=== PATIENT | male | born 1985 | race Caucasian/White ===

== ENCOUNTER 2021-03-11 01:24 | Day surgery (SDC) | payer BC, SELFPAY ==
[2021-03-09 13:36] VITALS: BMI 37.5
[2021-03-11] VITALS (11 sets, daily range): BP systolic 151–169; BP diastolic 87–110; PULSE 72–99; RESP 10–20; TEMP 36.1–37.4; O2SAT 92–99
--- NOTE | ~2021-03-11 | XR_ITS ---
EXAMINATION: XR retrograde pyelo w/stent LT EXAM DATE: 03/11/2021 13:16 INDICATION: Left-sided stone extraction, stent placement. TECHNIQUE: Fluoroscopy used during XR retrograde pyelo w/stent LT performed by Dr. Fidel toledo MD, urologist. The radiologist Mohamud Faulkner M.D. dictating this report of the image(s) availabl e was not present for the procedure. Total fluoroscopic time of 25 seconds. The DAP for this proced ure was 725 radcm2. A total of 10 images sent to PACS from the exam. FINDINGS: Left ureter was cannulated, traversed with wire, injected with contrast. A double-J ureter al stent was placed. Correlate with procedure note. IMPRESSION: Fluoroscopy used during XR retrograde pyelo w/stent LT. Reviewed, dictated and finalized at location B.
--- NOTE | 2021-03-11 11:27 | WPDHPUPDATE1 ---
History and Physical Update Update Date/Time: 03/11/21 11:27 History and Physical has been reviewed, including an updated exam of the patient. There are NO changes in the patient's condition. Risks, benefits, and alternatives have been discussed and questions answered. Patient agrees to proceed with procedure.
[2021-03-11] MEDS: LACTATED RINGERS 1,000 ML 30 ML IV CONT (11:30)
--- NOTE | 2021-03-11 12:10 | P.PNAN_ITS ---
Anes - Initial Pre Proc Eval Procedure: Operation Date: 03/11/21 13:15 Proposed Procedures p Cystoscopy, Left Retrograde Pyelogram, Left Ureteroscopy, Left Stone Extraction, Possible Left Stent Placement - Fidel Arroyo MD s Possible Holmium Laser - Fidel Arroyo MD Date/Time: 03/11/21 12:10 Surgeon: Fidel Arroyo MD Pre Op Diagnosis: Left Ureteral Stone Patient Data Age: 35 Gender: M Height: 1.91 m Weight: 146 kg Last Vital Signs Temp 37.4 C 03/11/21 11:48 Pulse 79 03/11/21 11:48 Resp 18 03/11/21 11:48 BP 157/92 H 03/11/21 11:48 Pulse Ox 99 03/11/21 11:48 Allergies Allergy/AdvReac Type Severity Reaction Status Date / Time No Known Allergies Allergy Unverified 03/11/21 11:07 Home Medications Medication Instructions Recorded Confirmed Type hydrocodone-acetaminophen 1 tablet PO Q6-8H PRN 03/09/21 03/11/21 History ondansetron 4 mg PO BID PRN 03/09/21 03/11/21 History tamsulosin 0.4 mg PO DAILY 03/09/21 03/11/21 History Patient hx anesthesia problems: none Family hx anesthesia problems: none Results Review: All pre-operative results and documents have been reviewed as p art of the pre-operative evaluation. [facility] Social History Social History Smoking status: Never smoker Alcohol intake: current Substance use: never Living arrangements: with family Additional living arrangements comments: AND CHILDREN Spiritual care concerns: No Anes - Eval Final PreProcedure Day of Procedure 03/11/21 12:10 Patient weight: morbidly obese Heart: regular rate and rhythm Lungs: clear to auscultation and normal air movement Airway: Mallampati scale class II Neurological: alert and oriented Last oral intake: >/= 8 hours ASA classification: III Emergent: no Anesthetic plan: proceed Anesthesia type and monitoring: general LMA and standard monitoring Results Review: All pre-operative results and documents have been reviewed as part of the pre-operative evaluation. Informed Consent: The patient's anesthetic plan and its attendant risks and benefits were discussed with the patient/family/POA. Questions were solicited and answers provided to the satisfaction of the patient/family/POA.
[2021-03-11] MEDS: ceFAZolin 3 GM/D5W 100 ML 100 ML IVPB (12:45)
--- NOTE | 2021-03-11 13:12 | W.PM.PROC2 ---
Procedure Note - Detailed Date of Procedure 03/11/21 Pre-op Diagnosis Left Ureteral Stone Post-op Diagnosis same Procedure Performed Cystoscopy, left retrograde pyelogram, left ureteroscopy with stone extraction, left ureteral stent placement, 4.8 [place] contour Surgeon Fidel Arroyo MD Anesthesia general Description of Procedure Patient is taken to the operative suite correctly identified. Once anesthesia was obtained was placed in dorsal lithotomy position and prepped draped usual sterile fashion. Twenty-two [place] scope was inserted the bladder. There were no tumors noted. Left ear orifice was cannulated with a guidewire. It was dilated using a 8/10 dilator. Rigid ureteral scope was then inserted. The stone was visualized and grasped with an escape basket. It was removed in its entirety. Reinspection revealed no residual stones. Pyelogram was then performed. 4.8 [place] contour stent was then placed with the proximal end in the lower pole the distal in the bladder. Bladder was drained. 2% viscous lidocaine was inserted urethra patient is taken recovery stable condition. He will follow up in a week's time for stent removal. Drains Yes Packing No Pathology yes Complications No immediate complications Condition stable Disposition PACU
[2021-03-11] MEDS: LIDOCAINE HCL 2% GEL UROJET 10 ML PKG MUCOUS MEM (13:16)
[2021-03-11] MEDS: fentaNYL CITRATE INJ (*CRX) 100 MCG/2 ML VIAL 25 MCG IV PUSH (13:46)
--- NOTE | 2021-03-11 15:13 | SUR.PHASEI ---
1319 DR. PADILLA AWARE OF PATIENT'S ELEVATED BLOOD PRESSURES.
[2021-03-11] MEDS: ONDANSETRON INJ 4 MG/2 ML VIAL IV PUSH (15:38)
== END 2021-03-11 16:50 | disposition home or self-care (01) ==
PROVIDERS: PCP Family Medicine; Visit Provider Urology
PROC: (CPT 52352; principal; 2021-03-11 13:15)
DX: N20.1 Calculus of ureter (principal); E66.01 Morbid (severe) obesity due to excess calories; Z68.41 Body mass index [BMI] 40.0-44.9, adult
CPT/HCPCS: 52352; 52332; 74420; 82365; 88300; A9270; C1769; C2617; J0690; J1100; J2250; J2405; J2704; J3010; J7120; Q9966

== ENCOUNTER → 2021-04-23 08:38 | Outpatient (CLI) | payer BC, SELFPAY ==
--- NOTE | ~2021-04-23 | US_ITS ---
EXAMINATION: US renal BI DATE: 04/23/2021 08:56 INDICATION: Left ureteral stone TECHNIQUE: Multiple grayscale and Doppler ultrasound images of the kidneys were obtained. COMPARISON: None. FINDINGS: The right kidney measures 13.1 x 5.8 x 6.4 cm. The left kidney measures 11.4 x 6.5 x 6.7 cm . The kidneys demonstrate normal parenchymal echogenicity. There is no hydronephrosis. The bladder is normal. IMPRESSION: 1. Normal kidneys without hydronephrosis. Reviewed, dictated and finalized at location A. [facility]
== END ==
PROVIDERS: Visit Provider Urology
DX: N20.1 Calculus of ureter (principal)
CPT/HCPCS: 76775